=== PATIENT | female | born 1955 | race Two or more races ===

== ENCOUNTER 2020-05-06 13:32 | Inpatient (IN) | payer OTHER ==
[~2020-05-06] VITALS: Ht 13.2 cm; Wt 56.2 kg
[2020-05-16] MEDS ORDERED: ZESTRIL40 M1 PO (12:32)
[2020-05-16] MEDS ORDERED: AMLODIPINE BESYL5 MG PO (12:33)
[2020-05-16] MEDS ORDERED: KAPVAY0.1 MG PO (12:33)
[2020-05-16] MEDS ORDERED: NITROSTAT0.4 MG SL (12:34)
[2020-06-25] MEDS ORDERED: TOPROL XL25 M1 PO (15:59)
[2020-06-28] MEDS ORDERED: [UNRECOGNIZED DRUG - OTHER] (08:04)
== END 2020-07-01 11:33 | disposition home or self-care (01) | DRG 737 ==
LOC: OB/GYN 05-23 07:00 → O/R 06-27 05:32 → OB/GYN 06-27 05:32
PROVIDERS: ADMIT Obstetrics & Gynecology Gynecologic Oncology; ATTEND Obstetrics & Gynecology Gynecologic Oncology
PROC: 0DBU0ZZ Excision of Omentum, Open Approach (ICD-10-PCS; 2020-06-27)
PROC: 0UB70ZZ Excision of Bilateral Fallopian Tubes, Open Approach (ICD-10-PCS; 2020-06-27)
PROC: 07BC0ZX Excision of Pelvis Lymphatic, Open Approach, Diagnostic (ICD-10-PCS; 2020-06-27)
PROC: 0UT20ZZ Resection of Bilateral Ovaries, Open Approach (ICD-10-PCS; 2020-06-27)
PROC: 30233N1 Transfusion of Nonautologous Red Blood Cells into Peripheral Vein, Percutaneous Approach (ICD-10-PCS; 2020-06-27)
PROC: 0UT90ZZ Resection of Uterus, Open Approach (ICD-10-PCS; principal; 2020-06-27 08:30)
DX: C56.2 Malignant neoplasm of left ovary (principal); C78.5 Secondary malignant neoplasm of large intestine and rectum; Z20.828 Contact with and (suspected) exposure to other viral communicable diseases; D64.9 Anemia, unspecified